=== PATIENT | male | born 1950 | race Caucasian/White ===

== ENCOUNTER → 2016-06-15 | Outpatient (CLI) | payer OTHER | END | disposition home or self-care (01) | LOC: GMAJ 11:13 | PROVIDERS: ATTEND Family Medicine | DX: E78.00 Pure hypercholesterolemia, unspecified (principal); E11.40 Type 2 diabetes mellitus with diabetic neuropathy, unspecified; Z12.5 Encounter for screening for malignant neoplasm of prostate ==

== ENCOUNTER → 2018-05-16 | Outpatient (CLI) | payer OTHER | LOC: GMAJ 10:23 | PROVIDERS: ATTEND Family Medicine | DX: M10.9 Gout, unspecified (principal) ==

== ENCOUNTER → 2018-09-19 | Outpatient (CLI) | payer OTHER | LOC: GMAJ 11:46 | PROVIDERS: ATTEND Family Medicine | DX: Z12.5 Encounter for screening for malignant neoplasm of prostate (principal) ==

== ENCOUNTER → 2019-07-05 | Outpatient (CLI) | payer OTHER ==
--- NOTE | 2019-07-06 08:09 | RAD ---
EXAM DESCRIPTION: Pelvis CLINICAL HISTORY: 68 years Male, PAIN IN RIGHT HIP COMPARISON: None. FINDINGS: Single view of the pelvis demonstrates degenerative disc narrowing at L4-5 and suspected at L5-S1 with a normal-appearing left hip. Advanced degenerative changes with joint space narrowing, marginal osteophytes, and irregular femoral head articular surface noted. Asymmetric significantly advanced osteoarthritis right hip suspected. No acute fracture or dislocation or destructive change noted. IMPRESSION: Advanced degenerative changes right hip with joint space narrowing and marginal osteophytes and subchondral articular irregularity. Advanced degenerative disc disease L4-5 with narrowing is present with suspected moderate changes at L5-S1 is well Electronically signed by: Elias Holloway MD 07/06/2019 8:08 AM CDT
--- NOTE | 2019-07-24 08:06 | RAD ---
EXAM DESCRIPTION: Knee,Right 1 or 2 Views CLINICAL HISTORY: PAIN IN RIGHT KNEE COMPARISON: 09 February 2019 TECHNIQUE: [place] view right FINDINGS: Degenerative changes are observed in the patellofemoral joint. No fracture is detected. IMPRESSION: Degenerative changes are observed in the patellofemoral articulation. Electronically signed by: Neymar Braden MD 07/24/2019 8:04 AM CDT
== END ==
LOC: RAD 13:00
PROVIDERS: ATTEND Orthopaedic Surgery
DX: M16.11 Unilateral primary osteoarthritis, right hip (principal); M25.751 Osteophyte, right hip; M51.36 Other intervertebral disc degeneration, lumbar region; M17.11 Unilateral primary osteoarthritis, right knee

== ENCOUNTER → 2019-10-17 | Outpatient (CLI) | payer OTHER | LOC: GMAJ 10:39 | PROVIDERS: ATTEND Family Medicine | DX: M10.9 Gout, unspecified (principal); Z12.5 Encounter for screening for malignant neoplasm of prostate | CPT/HCPCS: 84550; G0103 ==

== ENCOUNTER → 2020-01-23 | Outpatient (CLI) | payer OTHER ==
--- NOTE | 2020-01-24 16:56 | US ---
EXAM DESCRIPTION: 3D Diagnostic, Bilateral (accession [id number]), Breast,Left (accession [id number]): Ultrasound CLINICAL HISTORY: 69 yearsMaleUNSP LUMP IN LEFT BREAST Pea size. Lateral to the left nipple. Lifetime risk of developing breast cancer (Tyrer-Cuzick model)(%): Not calculated COMPARISON: Comparison ultrasound real-time images only of the right breast on the same visit. TECHNIQUE: Bilateral LM, CC, and MLO projection full-field images, digital tomosynthesis technique. Bilateral 2-D digital full-field images: LM, CC, and MLO projections. CAD available for 2-D images.. Transcutaneous scanning of the left breast utilizing bryant-scale and Doppler modes. Scanning performed by the enterostomal therapy nurse ; observation by Dr. Barreto. FINDINGS: The breast parenchymal density pattern is: Almost entirely fatty. No skin thickening or nipple retraction ridging is density in the retroareolar left breast extending laterally, inferiorly, and posteriorly to the nipple. This is underlying the triangular skin marker. Not seen in the right breast. Small axillary nodule most likely lymph node in the axillary tail of the right breast. No new focal, stellate mass or density, focal asymmetry , and no suspicious microcalcifications bilaterally. Ultrasound: Scanning of the retroareolar left breast with attention to the region posterior, lateral, and inferior to the nipple. Palpable mass. This is most likely gynecomastia. Minimally hypoechoic tissue. No definite mass. No cyst, no fluid collection, and no large calcifications. IMPRESSION: Benign exam. BIRAD CATEGORY: 2 BENIGN FINDINGS. RECOMMENDATIONS: FOLLOW UP: Recommended only if there are new or additional clinical or laboratory findings. Written communication explaining the IMPRESSION and follow-up, will be mailed to the patient and referring health care provider. The FINDINGS and the FOLLOW-UP plan were reviewed in person with the patient after the examination. Electronically signed by: Jose Barreto MD 01/24/2020 4:54 PM CDT
== END ==
LOC: US 12:32
PROVIDERS: ATTEND Family Medicine
DX: N63.42 Unspecified lump in left breast, subareolar (principal)
CPT/HCPCS: 76641; 77066; G0279

== ENCOUNTER → 2020-02-27 | Outpatient (CLI) | payer OTHER | LOC: GMAJ 10:56 | PROVIDERS: ATTEND Family Medicine | DX: M10.00 Idiopathic gout, unspecified site (principal); E11.42 Type 2 diabetes mellitus with diabetic polyneuropathy; E78.00 Pure hypercholesterolemia, unspecified; Z79.899 Other long term (current) drug therapy ==